=== PATIENT | female | born 1975 | race Asian ===

== ENCOUNTER 2017-01-30 18:39 | Emergency (ER) | payer OTHER, MEDICAID ==
[2017-01-30 19:07] VITALS: O2SAT 96
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
[2017-01-30 19:21] VITALS: BP 120/80; PULSE 70; RESP 20; TEMP 98.2
== END 2017-01-30 19:21 | disposition home or self-care (01) ==
LOC: CED 18:39
DX: S16.1XXA Strain of muscle, fascia and tendon at neck level, initial encounter (principal); V43.52XA Car driver injured in collision with other type car in traffic accident, initial encounter
CPT/HCPCS: G0463-PO